=== PATIENT | male | born 1950 | race Two or more races ===

== ENCOUNTER 2023-08-24 09:55 | Emergency (ER) | payer BC ==
[~2023-08-24] VITALS: Ht 177.8 cm; Wt 70.3 kg
[2023-08-24] MEDS ORDERED: LORAZEPAM 0.5 MG TABLET ONE (10:44)
[2023-08-24] MEDS ORDERED: CYCLOBENZAPRINE 10 MG TABLET ONE (10:45)
[2023-08-24] MEDS ORDERED: IBUPROFEN 600 MG TABLET ONE (10:45)
[2023-08-24] MEDS: LORAZEPAM 1 MG TABLET PO ONE (10:50)
[2023-08-24] MEDS: CYCLOBENZAPRINE 10 MG TABLET PO ONE (10:50)
[2023-08-24] MEDS: IBUPROFEN 600 MG TABLET PO ONE (10:50)
[2023-08-24] MEDS ORDERED: NAPR-1009 PO (13:07)
[2023-08-24] MEDS ORDERED: CYCL10TA9 PO (13:07)
[2023-08-24 13:22] VITALS: BP 142/84; TEMP 98.4; O2SAT 100
== END 2023-08-24 13:23 | disposition home or self-care (01) ==
LOC: ER 10:17
DX: R51.9 Headache, unspecified (principal); M54.50 Low back pain, unspecified; I10 Essential (primary) hypertension; E11.9 Type 2 diabetes mellitus without complications; V89.2XXA Person injured in unspecified motor-vehicle accident, traffic, initial encounter; Y93.89 Activity, other specified; Y92.89 Other specified places as the place of occurrence of the external cause; Y99.8 Other external cause status
CPT/HCPCS: 70450-TC; 72131-TC

== ENCOUNTER 2023-11-21 19:40 | Emergency (ER) | payer BC ==
[~2023-11-21] VITALS: Ht 177.8 cm; Wt 76.2 kg
[~2023-11-21 19:40] MED LIST: CYCL10TA9 PO; NAPR-1009 PO
[2023-11-21 20:50] LABS: BASOPHILS % (AUTO) 0.5 % (0.0-2.0); EOSINOPHILS # (AUTO) 0.2 K/uL (0.0-0.7); EOSINOPHILS % (AUTO) 3.5 % (0.0-6.0); HEMATOCRIT 44 % (39-51); HEMOGLOBIN 14.9 g/dL (13.5-17.5); LYMPHOCYTES # (AUTO) 0.8 K/uL (0.8-4.8); LYMPHOCYTES % (AUTO) 11.7 % (20.0-44.0); MEAN CORPUSCULAR HEMOGLOBIN 29 PG (26.0-33.0); MEAN CORPUSCULAR HGB CONC 34 g/dl (31.0-36.0); MEAN CORPUSCULAR VOLUME 86 fL (80-96); MONOCYTES # (AUTO) 0.3 K/uL (0.1-1.30); MONOCYTES % (AUTO) 4.4 % (2.0-12.0); NEUTROPHILS # (AUTO) 5.7 K/uL (1.8-8.9); NEUTROPHILS % (AUTO) 79.9 % (43.0-81.0); PLATELET COUNT (AUTO) 201 K/uL (150-450); RED BLOOD CELL COUNT(AUTO) 5.14 MIL/uL (4.5-6.0); RED CELL DISTRIBUTION WIDTH 13.6 % (11.5-15.0); WHITE BLOOD COUNT (AUTO) 7.1 K/uL (4.3-11.0)
[2023-11-21 21:02] LABS: APPEARANCE,URINE CLEAR (CLEAR); BILIRUBIN,URINE NEGATIVE (NEGATIVE); BLOOD, URINE NEGATIVE Ery/uL (NEGATIVE); COLOR,URINE YELLOW (YELLOW); KETONES,URINE 2+ mg/dL (NEGATIVE); LEUKOCYTE ESTERASE ,URINE NEGATIVE (NEGATIVE); NITRITE, URINE NEGATIVE (NEGATIVE); PROTEIN,URINE TRACE mg/dl (NEGATIVE); UGLUCOSE 3+ mg/dL (NEGATIVE)
[2023-11-21 21:14] LABS: ALANINE AMINOTRANSFERASE 35 U/L (12-78); ALBUMIN 3.6 g/dL (3.4-5.0); ALCOHOL, BLOOD < 3 mg/dL (0-10); ALKALINE PHOSPHATASE 77 U/L (46-116); ASPARTATE AMINOTRANSFERASE 8 U/L (15-37); BILIRUBIN,DIRECT 0.1 mg/dL (0.0-0.2); BILIRUBIN,TOTAL 0.4 mg/dL (0.2-1.0); CALCIUM, SERUM 9.3 mg/dL (8.5-10.1); CARBON DIOXIDE 29 mmol/L (21-32); CHLORIDE 102 mmol/L (98-107); CREATININE 0.9 mg/dL (0.6-1.3); GLUCOSE 297 mg/dL (74-106); POTASSIUM 4.5 mmol/L (3.5-5.1); SODIUM SERUM 137 mmol/L (136-145); TOTAL PROTEIN, SERUM 6.9 g/dL (6.4-8.2); UREA NITROGEN, BLOOD 16 mg/dL (7-18)
[2023-11-21] MEDS ORDERED: MECLIZINE HCL 25 MG TABLET ONE (21:27)
[2023-11-21] MEDS: MECLIZINE HCL 25 MG TABLET PO ONE (21:29)
[2023-11-21 21:34] LABS: AMPHETAMINE, URINE NEGATIVE (NEGATIVE); BARBITURATE, URINE NEGATIVE (NEGATIVE); BENZODIAZEPINE, URINE NEGATIVE (NEGATIVE); CANNABINOID, URINE NEGATIVE (NEGATIVE); COCCAINE, URINE NEGATIVE (NEGATIVE); OPIATE, URINE NEGATIVE (NEGATIVE); PHENCYCLIDINE SCREEN,URINE NEGATIVE (NEGATIVE)
[2023-11-21] MEDS ORDERED: MECL-159 PO (21:48)
[2023-11-21 22:06] VITALS: BP 130/82; TEMP 98.2; O2SAT 98
== END 2023-11-21 22:06 | disposition home or self-care (01) ==
LOC: ER 19:53
DX: R42 Dizziness and giddiness (principal); T42.4X5A Adverse effect of benzodiazepines, initial encounter; I10 Essential (primary) hypertension; E11.9 Type 2 diabetes mellitus without complications; Z79.899 Other long term (current) drug therapy; Z60.2 Problems related to living alone; Y92.89 Other specified places as the place of occurrence of the external cause
CPT/HCPCS: 99285; 93005; 71045; 70450; 85025; 80048; 80076; 81003; 36415; 84443; 84484; 82962; 80320; 80307; J8597; G0480

== ENCOUNTER 2024-11-10 16:22 | Emergency (ER) | payer BC ==
[~2024-11-10] VITALS: Ht 154.9 cm; Wt 67.1 kg
[~2024-11-10 16:22] MED LIST changes: +MECL-159 PO
[2024-11-10 17:24] LABS: BASOPHILS % (AUTO) 0.6 % (0.0-2.0); EOSINOPHILS # (AUTO) 0.3 K/uL (0.0-0.7); EOSINOPHILS % (AUTO) 3.5 % (0.0-6.0); HEMATOCRIT 45 % (39-51); HEMOGLOBIN 15.5 g/dL (13.5-17.5); LYMPHOCYTES # (AUTO) 1.1 K/uL (0.8-4.8); LYMPHOCYTES % (AUTO) 15.3 % (20.0-44.0); MEAN CORPUSCULAR HEMOGLOBIN 29 PG (26.0-33.0); MEAN CORPUSCULAR HGB CONC 34 g/dl (31.0-36.0); MEAN CORPUSCULAR VOLUME 84 fL (80-96); MONOCYTES # (AUTO) 0.4 K/uL (0.1-1.30); MONOCYTES % (AUTO) 5.7 % (2.0-12.0); NEUTROPHILS # (AUTO) 5.5 K/uL (1.8-8.9); NEUTROPHILS % (AUTO) 74.9 % (43.0-81.0); PLATELET COUNT (AUTO) 188 K/uL (150-450); RED BLOOD CELL COUNT(AUTO) 5.34 MIL/uL (4.5-6.0); WHITE BLOOD COUNT (AUTO) 7.4 K/uL (4.3-11.0)
[2024-11-10 17:32] LABS: CALCIUM, SERUM 9.2 mg/dL (8.5-10.1); CARBON DIOXIDE 32 mmol/L (21-32); CHLORIDE 105 mmol/L (98-107); CREATININE 0.8 mg/dL (0.6-1.3); GLUCOSE 163 mg/dL (74-106); POTASSIUM 4.4 mmol/L (3.5-5.1); SODIUM SERUM 140 mmol/L (136-145); UREA NITROGEN, BLOOD 19 mg/dL (7-18)
[2024-11-10 17:46] LABS: NT-PRO BNP 51 pg/mL (0-125)
[2024-11-10] MEDS ORDERED: diphenhydrAMINE HCL 50 MG/ML VIAL ONE (17:58)
[2024-11-10] MEDS ORDERED: ACETAMINOPHEN ES 500 MG TABLET ONE (17:59)
[2024-11-10] MEDS ORDERED: MECLIZINE HCL 25 MG TABLET ONE (17:59)
[2024-11-10] MEDS ORDERED: PROCHLORPERAZINE EDISYLATE 10 MG/2 ML VIAL ONE (17:59)
[2024-11-10] MEDS: MECLIZINE HCL 25 MG TABLET PO ONE (18:18)
[2024-11-10] MEDS: ACETAMINOPHEN ES 500 MG TABLET PO ONE (18:23)
[2024-11-10] MEDS: diphenhydrAMINE HCL 50 MG/ML VIAL IV ONE (18:24)
[2024-11-10] MEDS: PROCHLORPERAZINE EDISYLATE 10 MG/2 ML VIAL IVP ONE (18:25)
[2024-11-10] MEDS ORDERED: ACET-2605 PO (20:17)
[2024-11-10] MEDS ORDERED: MECL-182 PO (20:17)
[2024-11-10 20:31] VITALS: BP 130/68; TEMP 98.1; O2SAT 96
== END 2024-11-10 20:31 | disposition home or self-care (01) ==
LOC: ER 16:27
DX: R42 Dizziness and giddiness (principal); R07.89 Other chest pain; H53.8 Other visual disturbances; I10 Essential (primary) hypertension; E11.9 Type 2 diabetes mellitus without complications; I25.10 Atherosclerotic heart disease of native coronary artery without angina pectoris; Z95.1 Presence of aortocoronary bypass graft; Z79.899 Other long term (current) drug therapy; Z60.2 Problems related to living alone
CPT/HCPCS: 99285; 96374; 70450; 71045; 96375; 93005; 85025; 80048; 36415; 84484 ×2; 83880; J8597; J0780; J1200